=== PATIENT | female | born 1995 | race Caucasian/White ===

== ENCOUNTER → 2016-05-03 | Outpatient (CLI) | payer OTHER ==
--- NOTE | 2016-05-03 09:58 | XR ---
EXAMINATION TYPE: XR chest 2V DATE OF EXAM: 05/03/2016 9:52 AM COMPARISON: NONE INDICATION: Cough TECHNIQUE: Single frontal view of the chest is obtained. FINDINGS: The heart size is normal. The pulmonary vasculature is normal. The lungs are clear. IMPRESSION: 1. No acute pulmonary process.
--- NOTE | 2016-05-03 11:23 | CT ---
EXAMINATION TYPE: CT sinus wo con DATE OF EXAM: 05/03/2016 9:56 AM COMPARISON: NONE HISTORY: Sinusitis CT DLP: 590.1 mGycm CONTRAST: None The paranasal sinuses are examined in the axial plane at 2 mm thick sections. Reconstructed images i n the coronal plane were obtained. There is scatter artifact from an earring. Minimal mucosal thickening is along the roof of the left maxillary sinus. Obstruction of the ostiomea dorothy unit however is not evident. Right maxillary sinus is clear Mild mucosal thickening is within th e mid right ethmoid air cells. The sphenoid sinuses are clear. The frontal sinuses are clear. The septum is evaluated. There is septal deviation to the right. The ostiomeatal units are patent. Bilateral jeana bullosa are present. IMPRESSIONS: 1. Mild mucosal thickening mid left ethmoid air cells and left maxillary sinus. 2. Right septal deviation
== END | disposition home or self-care (01) ==
LOC: RADCTMAIN 09:33
PROVIDERS: ATTEND Otolaryngology
DX: J34.89 Other specified disorders of nose and nasal sinuses (principal); J34.2 Deviated nasal septum; R05 Cough; R06.2 Wheezing
CPT/HCPCS: 70486; 71020